=== PATIENT | female | born 1985 | race Caucasian/White ===

== ENCOUNTER 2021-05-11 12:37 | Emergency (ER) | payer OTHER ==
[2021-05-11] MEDS ORDERED: CIPRO500 MG PO (16:34)
[2021-05-11] MEDS ORDERED: CARAFATE1 GM PO (16:34)
[2021-05-11] MEDS ORDERED: PRILOSEC20 MG PO (16:34)
[2021-05-11] MEDS ORDERED: METRONIDAZOLE500 MG PO (16:34)
[2021-05-11] MEDS ORDERED: PERCOCET 10-321 EACH PO (16:40)
[2021-05-11] MEDS ORDERED: MEDROL 4MG DOSEP4 MG PO (16:40)
[2021-05-11 16:49] LABS: BILIRUBIN NEGATIVE (NEGATIVE); BLOOD NEGATIVE Ery/uL (NEGATIVE); CLARITY CLEAR (CLEAR); COLOR YELLOW (YELLOW); GLUCOSE (U) NORMAL (NORMAL); LEUKOCYTES 2+ Leu/uL (NEGATIVE); NITRITE POSITIVE (NEGATIVE); PROTEIN NEGATIVE (NEGATIVE); SPECIFIC GRAVITY 1.025 (1.001-1.030); UROBILINOGEN 0.2 mg/dL (0.2-1.0)
[2021-05-11 16:57] LABS: BACTERIA 2+
== END 2021-05-11 16:57 | disposition home or self-care (01) ==
LOC: FER 12:37
PROVIDERS: Internal Medicine
DX: M51.36 Other intervertebral disc degeneration, lumbar region (principal); N39.0 Urinary tract infection, site not specified; F17.210 Nicotine dependence, cigarettes, uncomplicated; Z90.49 Acquired absence of other specified parts of digestive tract; Z88.2 Allergy status to sulfonamides
CPT/HCPCS: 72131; 81001; J1170; J2930